=== PATIENT | female | born 1965 | race Caucasian/White ===

== ENCOUNTER 2020-10-14 12:01 | Inpatient (IN) ==
[2020-10-14 12:50] LABS: Basophils # (auto) 0.02 K/uL (0-0.2); Basophils % (auto) 0.5 %; Eosinophils # (auto) 0.06 K/uL (0-0.5); Eosinophils % (auto) 1.4 %; Hematocrit (blood only) 37.4 % (37-47); Hemoglobin 13.2 g/dL (12.0-16.0); Lymphocytes # (auto) 1.66 K/uL (1.2-3.4); Lymphocytes % (auto) 38.1 %; Mean Corpuscular Hemoglobin 32.6 pg (25-34); Mean Corpuscular Hgb Conc 35.3 g/dL (32-36); Mean Corpuscular Volume 92.3 fL (80-100); Mean Platelet Volume 8.6 fL (7.4-10.4); Monocytes # (auto) 0.25 K/uL (0.11-0.59); Monocytes % (auto) 5.7 %; Neutrophils # (auto) 2.37 K/uL (1.4-6.5); Neutrophils % (auto) 54.3 %; Platelet Count 292 K/uL (130-400); RDW Coefficient of Variation 12.7 % (11.5-14.5); RDW Standard Deviation 42.9 fL (36.4-46.3); Red Blood Count 4.05 M/uL (4.2-5.4); White Blood Count 4.36 K/uL (4.8-10.8)
[2020-10-14 13:09] LABS: Albumin Level 4.3 gm/dl (3.4-5.0); BUN Creatinine Ratio 10.1 (10-20); Calcium 9.1 mg/dl (8.5-10.1); Creatinine Clr Calc Pharmacy 74.4 ml/min; Est GFR (Non-African American) 83.7; Potassium 3.7 mmol/L (3.5-5.1)
[2020-10-14 13:11] LABS: Appearance Urine Clear (Clear); Bilirubin Urine Negative (Negative); Blood Urine Negative (Negative); Color Urine Yellow; Glucose Urine UA Negative (Negative); Ketones Urine Negative (Negative); Leukocyte Esterase Urine Negative (Negative); Nitrite Urine Negative (Negative); Protein Urine Negative (Negative); Urobilinogen Urine Negative (Negative); pH Urine 6.5 (4.5-7.5)
[2020-10-14 13:12] LABS: Albumin Globulin Ratio 1.2 (0.9-2); Bilirubin,Total 0.5 mg/dl (0.2-1); Globulin 3.6 gm/dl (2.5-4.0); Total Protein 7.9 gm/dl (6.4-8.2)
[2020-10-14] MEDS ORDERED: ONDANSETRON 4 MG OD TAB PO STA (13:33)
--- NOTE | 2020-10-14 17:35 | Emergency Department Note ---
Impression & Plan Constipation ED Provider Note INFORMANT: Patient ED PROVIDER(S): Jaspreet Murrieta MD CHIEF COMPLAINT: Constipation PLAN: Disposition: Admitted Condition: Good Outpatient prescription management: none Referral: None MEDICAL DECISION MAKING: Patient presented back to emergency department after failing her outpatient bowel regimen. She did not have any peritoneal findings on examination. His CBC and chemistry panel were unremarkable. TSH testing did not reveal any thyroid abnormalities. She underwent to soapsuds enemas without success. At that point she did not feel that she could tolerate additional enemas. I consulted with Dr. Sage of GI. He and I discussed inpatient treatment of her constipation with other laxatives, bowel prep, and enema. He had multiple considerations and I discussed having him talk with the hospitalist directly. I did consult with Dr. Rodriguez of the [facility] hospitalist service. She will contact him and they will outline her inpatient regimen. Triage Nursing notes reviewed and agree them. Vital Signs: reviewed and remarkable for no significant abnormalities Differential diagnosis: Functional constipation, impaction, obstruction, volvulus, metabolic abnormality, infection, neurologic, as well as other pathologies. Diagnostics interpreted by me: ECG: none Cardiac Monitoring: none Imaging studies: Pending. HPI: The patient is a 55 year old female who presents to the Emergency Room with complaints of continued severe constipation. This started over a week ago and is not any better despite home treatment. The patient also notes the following associated symptoms, mild nausea. The patient initially tried MiraLAX, magnesium citrate and 2 fleets enemas. She presented to the ER yesterday concerned that she may be obstructed. CT scan did not show obstruction but severe constipation. She was recommended and prescribed GoLYTELY however there was a shortage and this was unavailable. She took 11 doses of MiraLAX, 1 tables cristin in 8 ounces of Gatorade and did additional magnesium citrate and did not have any results. She felt more nauseated. She had no abdominal pain complaints. The patient contacted the emergency department for direction was told to come back in for reevaluation. Pt denies LOC, headache, fevers, chills, diaphoresis, visual changes, neck pain, chest pain, breathing difficulties, vomiting, abdominal pain, back pain, melena, hematochezia, urinary symptoms, numbness, weakness, lymphadenopathy, rash, or other complaints. ROS: See above HPI for pertinent positives & negatives. A total of 10 systems reviewed and were otherwise negative. PAST MEDICAL HISTORY:See Below , small bowel obstruction PAST SURGICAL HISTORY:See Below, lysis of adhesions FAMILY HISTORY:See Below SOCIAL HISTORY:See Below, non-smoker HOME MEDICATIONS:See Below ALLERGIES:See Below VITALS:See Below PHYSICAL EXAMINATION: GENERAL: Awake, alert, uncomfortable-appearing, in no distress HENT: Normocephalic, atraumatic. Oropharynx unremarkable. EYES: Normal conjunctiva. Sclera non-icteric. NECK: Inspection normal. Non-tender. Supple. No nuchal rigidity. FROM. No masses. RESPIRATORY: Clear to auscultation. No wheezes. No rales. Normal respiratory effort. CARDIAC: Normal rate. Normal rhythm. No murmurs. No rubs. Extremities warm and well perfused. Pulses equal. No JVD. GI: Soft, mildly-distended. Mildly tympanic. No change from yesterday. No tenderness to palpation. No rebound or guarding. No masses. RECTAL: Deferred. MUSCULOSKELETAL: Atraumatic. Chest examination reveals no tenderness. The back is symmetrical on inspection without obvious abnormality. There is no CVA tenderness to palpation. No joint edema. LOWER EXTREMITIES: Calves are equal size bilaterally and non-tender. No edema. No discoloration. NEURO: Normal sensorium. No sensory or motor deficits noted. SKIN: No rash or jaundice noted. Jaspreet Murrieta MD Past Med/Surg History Medical History (Updated 10/14/20 @ 17:31 by Jaspreet Murrieta MD) Alcohol abuse, in remission (~2015) History of COVID-19 (~2019) Surgical History (Updated 10/13/20 @ 13:08 by Raissa Anguiano) Aneurysm of right renal artery (~2003) Surgical Hx with Coil? H/O cervical spine surgery H/O hysterectomy with oophorectomy (~2001) History of breast implant Hx SBO (~2002) Family History (System 10/13/20 @ 13:08 by Raissa Anguiano) Grandmother (Paternal) Breast cancer Grandfather (Maternal) Colorectal cancer Mother Lung cancer Bladder cancer Grandfather (Paternal) Myocardial infarction Grandmother (Paternal) Alzheimer disease Denies family history of Ovarian cancer Prostate cancer Social History (System 10/13/20 @ 13:08 by Raissa Anguiano) Smoking Status: Never smoker Second Hand Exposure: No; Hx Alcohol Use: No Hx Substance Use: No Preferred Language: Turkmen Communication Ability: Effective Visual Impairment: Limited Hearing Ability: Normal marital status: Single Current Living Situation: Significant Other current occupational status: employed current occupation: Working for [employer] in [place], How many Children do You have: 3 How many Children do You have Comment: 30daughter, 26 son, 24 daughter Feels Safe at Home: Yes Childhood Exposure to Second-Hand Smoke: Yes (both parents did smoke ) caffeine: Yes (coffee ) Dental Care, Regularly: Yes Physical Activity Frequency: Does not Exercise Seatbelt Use: always Sunscreen Use: Yes Allergies Allergies Allergy/AdvReac Type Severity Reaction Status Date / Time aspirin Allergy Mild Unknown Unverified 10/14/20 15:28 ibuprofen Allergy Mild Unknown Unverified 10/14/20 15:28 Home Meds Home Medications Medication Instructions Recorded Confirmed calcium carbonate-vitamin D3 1 tab PO DAILY #0 03/15/08 10/14/20 [Caltrate 600 plus D] polyethylene glycol 3350 [Miralax] 17 g PO DAILY #0 03/15/08 10/14/20 gabapentin 600 mg tablet 600 mg PO TID 06/25/20 10/14/20 [id number]-ynexjfdfq-gzncpx-zinc 1 tab PO DAILY 10/14/20 10/14/20 Previous Rx's Medication Instructions Recorded lamotrigine 200 mg tablet 200 mg PO BID #90 tab 09/07/20 linaclotide 145 mcg capsule 145 mcg PO DAILY #30 cap 09/07/20 omega-3 fatty acids 1,000 mg 2,000 mg PO DAILY #30 cap 09/07/20 capsule ondansetron HCl 4 mg tablet 4 mg PO Q8H PRN #10 tab 09/07/20 pantoprazole 40 mg tablet,delayed 40 mg PO BID #90 tab 09/07/20 release turmeric 400 mg capsule 400 mg PO DAILY #30 cap 09/07/20 venlafaxine 150 mg 300 mg PO QAM #90 cap 09/07/20 capsule,extended release 24 hr cholecalciferol (vitamin D3) 50 50 mcg PO DAILY #30 cap 09/11/20 mcg (2,000 unit) capsule multivitamin 1 tab PO DAILY #30 tab 09/11/20 ondansetron 4 mg PO Q4H PRN #8 tab 10/13/20 sodium,potassium,mag sulfates 17.5 See Rx Instructions PO .COMPLEX 10/14/20 gram-3.13 gram-1.6 gram oral soln #354 ml Results & Data (ED) Vital Signs Vital Signs - 24 hr 10/14/20 12:22 10/14/20 14:01 10/14/20 16:00 Temperature 36.8 C Temperature Source Temporal Artery Scan Pulse Rate 75 Pulse Rate [Finger] 69 75 Pulse Rhythm [Finger] Regular Pulse Strength [Finger] Normal Respiratory Rate 16 17 17 Respiratory Effort / Characteristics Non-Labored Non-Labored Respiratory Depth Normal Normal Respiratory Pattern Regular Blood Pressure 115/63 Blood Pressure [Left Arm] 121/64 117/71 Blood Pressure Mean 80 Blood Pressure Mean [Left Arm] 83 86 Blood Pressure Position Sitting Blood Pressure Position [Left Arm] Lying Pulse Oximetry 98 99 98 Oxygen Delivery Method Room Air Room Air Room Air Sepsis Recent Fever Within 48 Hours No Sepsis New/Unexplained Change in Mental Status No Sepsis Action Taken by Nursing No Action Required 10/14/20 17:58 Temperature Temperature Source Pulse Rate Pulse Rate [Finger] 77 Pulse Rhythm [Finger] Regular Pulse Strength [Finger] Normal Respiratory Rate 17 Respiratory Effort / Characteristics Non-Labored Respiratory Depth Normal Respiratory Pattern Regular Blood Pressure Blood Pressure [Left Arm] 119/64 Blood Pressure Mean Blood Pressure Mean [Left Arm] 82 Blood Pressure Position Blood Pressure Position [Left Arm] Lying Pulse Oximetry 98 Oxygen Delivery Method Room Air Sepsis Recent Fever Within 48 Hours Sepsis New/Unexplained Change in Mental Status Sepsis Action Taken by Nursing Laboratory Data Result diagrams: 10/14/20 12:30 10/14/20 12:30 Lab Results 10/14/20 10/14/20 10/14/20 Range/Units 12:20 12:30 12:30 WBC 4.36 L (4.8-10.8) K/uL RBC 4.05 L (4.2-5.4) M/uL Hgb 13.2 (12.0-16.0) g/dL Hct 37.4 (37-47) % MCV 92.3 (80-100) fL MCH 32.6 (25-34) pg MCHC 35.3 (32-36) g/dL RDW Std Deviation 42.9 (36.4-46.3) fL RDW Coeff of Nasir 12.7 (11.5-14.5) % Plt Count 292 (130-400) K/uL MPV 8.6 (7.4-10.4) fL Immature Gran % (Auto) 0.0 % Neut % (Auto) 54.3 % Lymph % (Auto) 38.1 % Reeves % (Auto) 5.7 % Eos % (Auto) 1.4 % Baso % (Auto) 0.5 % Neut # (Auto) 2.37 (1.4-6.5) K/uL Lymph # (Auto) 1.66 (1.2-3.4) K/uL Reeves # (Auto) 0.25 (0.11-0.59) K/uL Eos # (Auto) 0.06 (0-0.5) K/uL Baso # (Auto) 0.02 (0-0.2) K/uL Immature Gran # (Auto) 0.00 (0.00-0.02) K/uL Sodium 136 (136-145) mmol/L Potassium 3.7 (3.5-5.1) mmol/L Chloride 104 (98-107) mmol/L Carbon Dioxide 30 (21-32) mmol/L Anion Gap 2.0 L (3-11) BUN 8 (7-18) mg/dl Creatinine 0.79 (0.6-1.2) mg/dl Est Cr Clr Drug Dosing 74.4 ml/min Est GFR ( Amer) 97.0 Est GFR (Non-Af Amer) 83.7 BUN/Creatinine Ratio 10.1 (10-20) Glucose 111 H (70-99) mg/dl Calcium 9.1 (8.5-10.1) mg/dl Total Bilirubin 0.5 (0.2-1) mg/dl AST 29 (15-37) U/L ALT 27 (12-78) U/L Alkaline Phosphatase 90 (45-117) U/L Total Protein 7.9 (6.4-8.2) gm/dl Albumin 4.3 (3.4-5.0) gm/dl Globulin 3.6 (2.5-4.0) gm/dl Albumin/Globulin Ratio 1.2 (0.9-2) Lipase 143 (73-393) U/L TSH (0.300-4.500) uIu/ml Urine Color Yellow Urine Appearance Clear (Clear) Urine pH 6.5 (4.5-7.5) Ur Specific [place] 1.010 (1.000-1.030) Urine Protein Negative (Negative) Urine Glucose (UA) Negative (Negative) Urine Ketones Negative (Negative) Urine Blood Negative (Negative) Urine Nitrite Negative (Negative) Urine Bilirubin Negative (Negative) Urine Urobilinogen Negative (Negative) Ur Leukocyte Esterase Negative (Negative) 10/14/20 Range/Units 12:30 WBC (4.8-10.8) K/uL RBC (4.2-5.4) M/uL Hgb (12.0-16.0) g/dL Hct (37-47) % MCV (80-100) fL MCH (25-34) pg MCHC (32-36) g/dL RDW Std Deviation (36.4-46.3) fL RDW Coeff of Nasir (11.5-14.5) % Plt Count (130-400) K/uL MPV (7.4-10.4) fL Immature Gran % (Auto) % Neut % (Auto) % Lymph % (Auto) % Reeves % (Auto) % Eos % (Auto) % Baso % (Auto) % Neut # (Auto) (1.4-6.5) K/uL Lymph # (Auto) (1.2-3.4) K/uL Reeves # (Auto) (0.11-0.59) K/uL Eos # (Auto) (0-0.5) K/uL Baso # (Auto) (0-0.2) K/uL Immature Gran # (Auto) (0.00-0.02) K/uL Sodium (136-145) mmol/L Potassium (3.5-5.1) mmol/L Chloride (98-107) mmol/L Carbon Dioxide (21-32) mmol/L Anion Gap (3-11) BUN (7-18) mg/dl Creatinine (0.6-1.2) mg/dl Est Cr Clr Drug Dosing ml/min Est GFR ( Amer) Est GFR (Non-Af Amer) BUN/Creatinine Ratio (10-20) Glucose (70-99) mg/dl Calcium (8.5-10.1) mg/dl Total Bilirubin (0.2-1) mg/dl AST (15-37) U/L ALT (12-78) U/L Alkaline Phosphatase (45-117) U/L Total Protein (6.4-8.2) gm/dl Albumin (3.4-5.0) gm/dl Globulin (2.5-4.0) gm/dl Albumin/Globulin Ratio (0.9-2) Lipase (73-393) U/L TSH 0.936 (0.300-4.500) uIu/ml Urine Color Urine Appearance (Clear) Urine pH (4.5-7.5) Ur Specific [place] (1.000-1.030) Urine Protein (Negative) Urine Glucose (UA) (Negative) Urine Ketones (Negative) Urine Blood (Negative) Urine Nitrite (Negative) Urine Bilirubin (Negative) Urine Urobilinogen (Negative) Ur Leukocyte Esterase (Negative) Administered Medications Discontinued Medications Ondansetron HCl (Ondansetron 4 Mg Od Tab) 4 mg PO NOW STA Stop: 10/14/20 13:34 Last Admin: 10/14/20 13:56 Dose: 4 mg Documented by: [id number] Discharge Plan Visit Data Chief Complaint: Constipation Stated Complaint: BLOATING/CONSTIPATED ED Provider: Jaspreet Murrieta Discharge Problem: Constipation Forms Stand Alone Forms: My [facility] Prescriptions Prescriptions: No Action polyethylene glycol 3350 [Miralax] 17 gram/dose Powder 17 g PO DAILY Qty: 0 RF: 0 Caltrate 600 plus D 600 mg (1,500 mg)-800 unit Tablet,Chewable 1 tab PO DAILY Qty: 0 RF: 0 gabapentin 600 mg tablet 600 mg PO TID RF: 0 Suprep Bowel Prep Kit 17.5-3.13-1.6 gram recon soln See Rx Instructions PO .COMPLEX Qty: 354 RF: 0 Linzess 145 mcg capsule 145 mcg PO DAILY Qty: 30 RF: 2 ondansetron HCl [Zofran] 4 mg tablet 4 mg PO Q8H PRN (Reason: nausea and vomiting) Qty: 10 RF: 0 omega-3 fatty acids [Fish Oil Concentrate] 1,000 mg capsule 2,000 mg PO DAILY Qty: 30 RF: 0 turmeric 400 mg capsule 400 mg PO DAILY Qty: 30 RF: 0 lamotrigine [Lamictal] 200 mg tablet 200 mg PO BID Qty: 90 RF: 1 pantoprazole [Protonix] 40 mg tablet,delayed release (DR/EC) 40 mg PO BID Qty: 90 RF: 3 venlafaxine [Effexor XR] 150 mg capsule,extended release 24hr 300 mg PO QAM Qty: 90 RF: 3 cholecalciferol (vitamin D3) 50 mcg (2,000 unit) capsule 50 mcg PO DAILY Qty: 30 RF: 0 multivitamin Tablet 1 tab PO DAILY Qty: 30 RF: 0 ondansetron 4 mg tablet,disintegrating 4 mg PO Q4H PRN (Reason: nausea and vomiting) Qty: 8 RF: 0 daostas-tabomxywl-[id number]-zinc Tablet 1 tab PO DAILY RF: 0
--- NOTE | 2020-10-14 18:48 | XRay Report ---
KUB HISTORY: Acute generalized abdominal pain with constipation constipation COMPARISON: CT abdomen and pelvis 10/13/2020 FINDINGS: Vascular coils medial to the right kidney redemonstrated. Nonobstructive bowel gas pattern. There is gaseous distention of the large bowel with mild to moderate fecal retention, most pronounce d in the descending colon, improved from yesterday's study. Postoperative changes of the right hemico valery. The known punctate left renal calculus is not identified. No pneumoperitoneum or pneumatosis. N o fracture. IMPRESSION: 1. Mild to moderate fecal retention has improved from yesterday's exam. 2. Mild gaseous distention of the large bowel with nonobstructive bowel gas pattern. 3. No pneumoperitoneum. ACT 112: Negative or not required by law. The above report was generated using voice recognition software. It may contain grammatical, syntax o r spelling errors. Electronically signed by: Orlando Chaudhary M.D. 10/14/2020 6:47 PM
[2020-10-14] MEDS ORDERED: PROMETHAZINE 12.5 MG/50.5 ML BAG IV STA (19:59)
[2020-10-14 20:00] LABS: Influenza A virus by PCR Negative (Neg); Influenza B virus by PCR Negative (Neg); RSV by PCR Negative (Neg); SARS CoV2 RNA(COVID-19) InHosp NEGATIVE (Negative)
--- NOTE | 2020-10-14 20:56 | History & Physical Report ---
Date of Service October 14, 2020 Assessment & Plan (1) Constipation: 55 yo F PMHx bipolar 1 disorder, GERD, IBS-C, SBO admitted for severe constipation with no BM for 12 days. Constipation, IBS-C, Hx SBO: History of constipation and SBO, was previously on Linzess but due to an insurance mixup has not been on this for about 6 weeks. With complaints of no BM for 12 days, despite Senna, Colace, Miralax, Mag citrate, enemas. KUB shows mild to moderate fecal retention and mild gaseous distention of the large bowel with nonobstructive bowel gas pattern. Will give patient constipation regimen to include Dulcolax, Colace, Shahla-Colace, Mag citrate (all scheduled), with fleets enemas as needed. Zofran PRN nausea. NPO except home meds. Will resume Linzess here while admitted; patient will require prescription on discharge. GERD: Continue pantoprazole. Bipolar 1 disorder: Continue lamotrigine, venlafaxine. Code Status: FULL CODE FEN: NPO with NSS at 100cc/hr DVT ppx: ad sadaf on demand Dispo: Med/Surg for constipation treatment (2) Bipolar 1 disorder: (3) GERD (gastroesophageal reflux disease): (4) IBS (irritable bowel syndrome): History of Present Illness Chief Complaint: constipation Primary Care Provider: Constantino St, 55 yo F PMHx bipolar 1 disorder, GERD, IBS-C, SBO presented to ER for constipation. Patient endorses no BM for 12 days; she has a history of IBS-C on Linzess but due to an insurance mixup this medication was not refilled and she has not taken it for 6 weeks. She has tried home Senna+, mag citrate, and fleet enemas without relief. She also endorses nausea and mild vague abdominal pain. She presented yesterday to ER for the same, and was first prescribed GoLytely but due to a national shortage instead did 11 doses of Miralax in Gatorade, still without relief. Denies chest pain, SOB, vomiting, dizziness, headache. No recent changes to daily routine or diet. She does not take any opiate medications. ER course included nausea medications and KUB which showed mild to moderate fecal retention and mild gaseous distention of the large bowel with nonobstructive bowel gas pattern. Hospitalist service was consulted for admission given continued constipation despite fairly aggressive outpatient treatment. Allergies Allergy/AdvReac Type Severity Reaction Status Date / Time aspirin Allergy Mild Unknown Unverified 10/14/20 15:28 ibuprofen Allergy Mild Unknown Unverified 10/14/20 15:28 Home Medications Medication Instructions Recorded Confirmed Type calcium carbonate-vitamin D3 1 tab PO DAILY #0 03/15/08 10/14/20 History [Caltrate 600 plus D] polyethylene glycol 3350 [Miralax] 17 g PO DAILY #0 03/15/08 10/14/20 History gabapentin 600 mg tablet 600 mg PO TID 06/25/20 10/14/20 History lamotrigine 200 mg tablet 200 mg PO BID #90 tab 09/07/20 10/14/20 Rx linaclotide 145 mcg capsule 145 mcg PO DAILY #30 cap 09/07/20 10/14/20 Rx omega-3 fatty acids 1,000 mg 2,000 mg PO DAILY #30 cap 09/07/20 10/14/20 Rx capsule ondansetron HCl 4 mg tablet 4 mg PO Q8H PRN #10 tab 09/07/20 10/14/20 Rx pantoprazole 40 mg tablet,delayed 40 mg PO BID #90 tab 09/07/20 10/14/20 Rx release turmeric 400 mg capsule 400 mg PO DAILY #30 cap 09/07/20 10/14/20 Rx venlafaxine 150 mg 300 mg PO QAM #90 cap 09/07/20 10/14/20 Rx capsule,extended release 24 hr cholecalciferol (vitamin D3) 50 50 mcg PO DAILY #30 cap 09/11/20 10/14/20 Rx mcg (2,000 unit) capsule multivitamin 1 tab PO DAILY #30 tab 09/11/20 10/14/20 Rx ondansetron 4 mg PO Q4H PRN #8 tab 10/13/20 10/14/20 Rx kxcnsgn-nqcyrkvpx-kvpqel-zinc 1 tab PO DAILY 10/14/20 10/14/20 History sodium,potassium,mag sulfates 17.5 See Rx Instructions PO .COMPLEX 10/14/20 10/14/20 Rx gram-3.13 gram-1.6 gram oral soln #354 ml Past Med/Surg History Medical History Alcohol abuse, in remission (~2015) History of COVID-19 (~2019) Surgical History Aneurysm of right renal artery (~2003) Surgical Hx with Coil? H/O cervical spine surgery H/O hysterectomy with oophorectomy (~2001) History of breast implant Hx SBO (~2002) Family History Grandmother (Paternal) Breast cancer Grandfather (Maternal) Colorectal cancer Mother Lung cancer Bladder cancer Grandfather (Paternal) Myocardial infarction Grandmother (Paternal) Alzheimer disease Denies family history of Ovarian cancer Prostate cancer Social History Smoking Status: Never smoker Second Hand Exposure: No; Hx Alcohol Use: No Hx Substance Use: No Preferred Language: Croatian Communication Ability: Effective Visual Impairment: Limited Hearing Ability: Normal Beliefs That Will Affect Care: None marital status: Single Current Living Situation: Alone Current Living Situation Comment: lives in house current occupational status: employed current occupation: Working for [employer] in [place], How many Children do You have: 3 How many Children do You have Comment: 30daughter, 26 son, 24 daughter Feels Safe at Home: Yes Safety Concerns: Feels Safe At This Time Childhood Exposure to Second-Hand Smoke: Yes (both parents did smoke ) caffeine: Yes (coffee ) Dental Care, Regularly: Yes Physical Activity Frequency: Does not Exercise Seatbelt Use: always Sunscreen Use: Yes Assistive Devices: Glasses Review of Systems Review of Systems: All systems reviewed & are unremarkable except as noted in HPI & below Constitutional: no fever, no chills and no malaise Respiratory: no cough and no dyspnea Cardiovascular: no chest pain, no palpitations and no edema Gastrointestinal: + abdominal pain and + constipation; no diarrhea/loose stools Genitourinary: no dysuria and no hematuria Physical Exam Constitutional: WD/WN, vitals as above Eyes: PERRL, conjunctivae normal, anicteric sclerae ENMT: external ear and nose normal, oropharynx normal Neck: normal visual inspection Respiratory: normal respiratory effort, lungs clear to auscultation Cardiovascular: RRR, no murmur, no edema Gastrointestinal (Abdomen): Inspection/Auscultation: normal bowel sounds Percussion/Palpation: + abdomen tender (LUQ, mild) and abdomen soft; no guarding Musculoskeletal: no cyanosis or clubbing, extremities motor strength 5/5 Skin: no rashes, warm and dry Neurologic: AAOx3, normal speech. Bilateral UE, LE, and face without sensory or motor deficits. No tremor. Psychiatric: A+Ox3, euthymic affect Results & Data Results & Data ([facility]) Vital Signs (Past 12 Hours) Vital Signs Temp Pulse Pulse Resp BP BP Pulse Ox 10/14/20 17:58 77 17 119/64 98 10/14/20 16:00 75 17 117/71 98 10/14/20 14:01 69 17 121/64 99 10/14/20 12:22 36.8 C 75 16 115/63 98 Laboratory Results Lab Results 10/14/20 10/14/20 10/14/20 Range/Units 12:20 12:30 12:30 WBC 4.36 L (4.8-10.8) K/uL RBC 4.05 L (4.2-5.4) M/uL Hgb 13.2 (12.0-16.0) g/dL Hct 37.4 (37-47) % MCV 92.3 (80-100) fL MCH 32.6 (25-34) pg MCHC 35.3 (32-36) g/dL RDW Std Deviation 42.9 (36.4-46.3) fL RDW Coeff of Nasir 12.7 (11.5-14.5) % Plt Count 292 (130-400) K/uL MPV 8.6 (7.4-10.4) fL Immature Gran % (Auto) 0.0 % Neut % (Auto) 54.3 % Lymph % (Auto) 38.1 % [place] % (Auto) 5.7 % Eos % (Auto) 1.4 % Baso % (Auto) 0.5 % Neut # (Auto) 2.37 (1.4-6.5) K/uL Lymph # (Auto) 1.66 (1.2-3.4) K/uL [place] # (Auto) 0.25 (0.11-0.59) K/uL Eos # (Auto) 0.06 (0-0.5) K/uL Baso # (Auto) 0.02 (0-0.2) K/uL Immature Gran # (Auto) 0.00 (0.00-0.02) K/uL Sodium 136 (136-145) mmol/L Potassium 3.7 (3.5-5.1) mmol/L Chloride 104 (98-107) mmol/L Carbon Dioxide 30 (21-32) mmol/L Anion Gap 2.0 L (3-11) BUN 8 (7-18) mg/dl Creatinine 0.79 (0.6-1.2) mg/dl Est Cr Clr Drug Dosing 74.4 ml/min Est GFR ( Amer) 97.0 Est GFR (Non-Af Amer) 83.7 BUN/Creatinine Ratio 10.1 (10-20) Glucose 111 H (70-99) mg/dl Calcium 9.1 (8.5-10.1) mg/dl Total Bilirubin 0.5 (0.2-1) mg/dl AST 29 (15-37) U/L ALT 27 (12-78) U/L Alkaline Phosphatase 90 (45-117) U/L Total Protein 7.9 (6.4-8.2) gm/dl Albumin 4.3 (3.4-5.0) gm/dl Globulin 3.6 (2.5-4.0) gm/dl Albumin/Globulin Ratio 1.2 (0.9-2) Lipase 143 (73-393) U/L TSH (0.300-4.500) uIu/ml Urine Color Yellow Urine Appearance Clear (Clear) Urine pH 6.5 (4.5-7.5) Ur Specific [place] 1.010 (1.000-1.030) Urine Protein Negative (Negative) Urine Glucose (UA) Negative (Negative) Urine Ketones Negative (Negative) Urine Blood Negative (Negative) Urine Nitrite Negative (Negative) Urine Bilirubin Negative (Negative) Urine Urobilinogen Negative (Negative) Ur Leukocyte Esterase Negative (Negative) COVID-19 Eval Order SARS-CoV-2 (PCR) (Negative) Influenza Type A (PCR) (Neg) Influenza Type B (PCR) (Neg) RSV (RT-PCR) (Neg) 05/05/21 05/05/21 05/05/21 Range/Units 12:30 Unknown Unknown WBC (4.8-10.8) K/uL RBC (4.2-5.4) M/uL Hgb (12.0-16.0) g/dL Hct (37-47) % MCV (80-100) fL MCH (25-34) pg MCHC (32-36) g/dL RDW Std Deviation (36.4-46.3) fL RDW Coeff of Nasir (11.5-14.5) % Plt Count (130-400) K/uL MPV (7.4-10.4) fL Immature Gran % (Auto) % Neut % (Auto) % Lymph % (Auto) % [place] % (Auto) % Eos % (Auto) % Baso % (Auto) % Neut # (Auto) (1.4-6.5) K/uL Lymph # (Auto) (1.2-3.4) K/uL [place] # (Auto) (0.11-0.59) K/uL Eos # (Auto) (0-0.5) K/uL Baso # (Auto) (0-0.2) K/uL Immature Gran # (Auto) (0.00-0.02) K/uL Sodium (136-145) mmol/L Potassium (3.5-5.1) mmol/L Chloride (98-107) mmol/L Carbon Dioxide (21-32) mmol/L Anion Gap (3-11) BUN (7-18) mg/dl Creatinine (0.6-1.2) mg/dl Est Cr Clr Drug Dosing ml/min Est GFR ( Amer) Est GFR (Non-Af Amer) BUN/Creatinine Ratio (10-20) Glucose (70-99) mg/dl Calcium (8.5-10.1) mg/dl Total Bilirubin (0.2-1) mg/dl AST (15-37) U/L ALT (12-78) U/L Alkaline Phosphatase (45-117) U/L Total Protein (6.4-8.2) gm/dl Albumin (3.4-5.0) gm/dl Globulin (2.5-4.0) gm/dl Albumin/Globulin Ratio (0.9-2) Lipase (73-393) U/L TSH 0.936 (0.300-4.500) uIu/ml Urine Color Urine Appearance (Clear) Urine pH (4.5-7.5) Ur Specific [place] (1.000-1.030) Urine Protein (Negative) Urine Glucose (UA) (Negative) Urine Ketones (Negative) Urine Blood (Negative) Urine Nitrite (Negative) Urine Bilirubin (Negative) Urine Urobilinogen (Negative) Ur Leukocyte Esterase (Negative) COVID-19 Eval Order [facility]FluRsv at [facility] SARS-CoV-2 (PCR) NEGATIVE (Negative) Influenza Type A (PCR) Negative (Neg) Influenza Type B (PCR) Negative (Neg) RSV (RT-PCR) Negative (Neg) Supervising Physician Co-Signing Physician Notes Patient seen and examined, chart reviewed, case discussed with Dr. Broussard and I agree with her assessment and plan as documented above. Briefly, patient is a 55yo C female with IBS-C, was previously on Linzess which was recently discontinued due to insurance confusion. Patient states that her insurance information was not updated therefore the medication was not covered. She called her insurance company to fix this issue and states that the Linzess will be covered now without difficulty. Patient had been takingSenna, Colace, Miralax, Mag citrate and enemas at home with no relief On exam she is afebrile, HD stable, NAD SKin - no rash HEENT - NC/AT, PERRL, EOMI, MMM Heart - +S1/S2, regular, no m/r/g Lungs - CTA Abd - +BS, soft, mildly distended, mildly tender with no rebound/guarding Ext - No edema Neuro - grossly nonfocal Labs and images reviewed KUB with mild to moderate fecal retention and mild gaseous distention fo the large bowel with nonobstructive pattern Assessment/Plan -Aggressive bowel regimen - Dulcolax, Colace, Shahla-colace, Mag citrate, enemas as needed -Resume Linzess -Monitor output, volume status and electrolytes -Remainder of plan as above Resident Activity Tracking Resident Involvement: Resident Care Provided Care Provided: Adult Hospital Medicine (1) GERD (gastroesophageal reflux disease) Esophagitis presence: without esophagitis Qualified Code(s): K21.9 - Gastro- esophageal reflux disease without esophagitis (2) Constipation Constipation type: unspecified constipation type Qualified Code(s): K59.00 - Constipation, unspecified (3) IBS (irritable bowel syndrome) Irritable bowel syndrome type: with constipation Qualified Code(s): K58.1 - Irritable bowel syndrome with constipation
[2020-10-14] MEDS ORDERED: ONDANSETRON INJ 2 MG/ML 2 ML VIAL IV PRN (23:24)
[2020-10-14] MEDS ORDERED: MELATONIN 3 MG TAB PO PRN (23:24)
[2020-10-14] MEDS ORDERED: SOD PHOSPHATE/SOD BIPHOSPHATE ENEMA 132 ML BTL PR PRN (23:24)
[2020-10-15] MEDS: SODIUM CHLORIDE 0.9% 1000ML 1,000 ML IV SCH ×2 (00:01→10:37)
[2020-10-15] MEDS: GABAPENTIN 600 MG TAB PO SCH ×4 (00:02→20:12)
[2020-10-15] MEDS: lamoTRIgine 100 MG TAB PO SCH ×3 (00:02→20:12)
[2020-10-15] MEDS: PANTOprazole 40 MG TAB PO SCH ×3 (00:02→20:12)
[2020-10-15] MEDS: bisacodyL 10 MG SUPP PR SCH ×2 (00:02→20:11)
[2020-10-15] MEDS: DOCUSATE SODIUM 100 MG CAP PO SCH ×3 (00:03→20:11)
--- NOTE | 2020-10-15 00:52 | Billing Data ---
Date of Service October 14, 2020 Coding Level of Care Code 53968 OBS Care - Level 2
[2020-10-15] MEDS: MULTIVITAMIN TAB PO SCH (08:18)
[2020-10-15] MEDS: DOCUSATE SODIUM/SENNA 50/8.6MG TAB PO SCH (08:19)
[2020-10-15] MEDS: VENLAFAXINE HCL XR 150 MG CAPXR PO SCH (08:20)
[2020-10-15] MEDS: LINACLOTIDE 145 MCG CAPSULE PO SCH (08:21)
[2020-10-15] MEDS: MAGNESIUM CITRATE 296 ML/BTL PO SCH (08:25)
[2020-10-15] MEDS ORDERED: METOCLOPRAMIDE HCL 5 MG TABLET PO PRN (11:45)
--- NOTE | 2020-10-15 11:49 | Hospitalist Progress Note ---
Date of Service October 15, 2020 Assessment & Plan (1) Constipation: History of constipation and SBO, was previously on Linzess but due to an insurance mixup has not been on this for about 6 weeks. - No BM for 13 days. - Continue admitting regimen. Discussed with patient option of lactulose, but we both feel better to give the current regimen 24 hours to work to avoid overtreatment and diarrhea. (2) Bipolar 1 disorder: - Continue lamotrigine, venlafaxine, & gabapentin. (3) GERD (gastroesophageal reflux disease): - Continue pantoprazole PO BID. (4) IBS (irritable bowel syndrome): - Will resume Linzess here while admitted; patient will require prescription on discharge. (5) DVT prophylaxis: SCDs - Low DVT risk per admission calculator Admission and Anticipated Discharge Date Admission Date: October 14, 2020 Subjective Still with some nausea. No BM yet. Reports no fevers/chills, chest pain, shortness of breath, abdominal pain, nausea, or vomiting. Physical Exam Constitutional: WD/WN, vitals as above Eyes: EOM intact bilaterally; no conjunctival abnormality ENMT: external ear and nose normal, oropharynx normal Neck: trachea midline, no thyromegaly normal visual inspection Respiratory: normal respiratory effort, lungs clear to auscultation no respiratory distress Cardiovascular: RRR, no murmur, no edema Gastrointestinal (Abdomen): Inspection/Auscultation: abdomen normal to inspection and + hypoactive bowel sounds; abdomen not distended Percussion/Palpation: abdomen soft; abdomen nontender, no guarding and abdomen not rigid Musculoskeletal: no cyanosis or clubbing, extremities motor strength 5/5 Skin: no rashes, warm and dry Neurologic: moves all extremities and awake Psychiatric: Orientation: alert, oriented to person and cooperative Results & Data Results & Data ([facility]) Vital Signs (Past 12 Hours) Vital Signs Temp Pulse Resp BP Pulse Ox 10/15/20 06:53 36.7 C 82 16 109/59 L 95 PG Care Time/CCT Total # of Minutes Spent Total Time Spent with Patient: Total time spent is greater than 50% in coordination of care (as documented) at patient's floor/unit and/or counseling p atient: Coding Level of Care Code 10002 Subseq Obs Care Lvl 2 Diagnoses Constipation K59.00 Constipation type: unspecified constipation type Bipolar 1 disorder F31.9 GERD (gastroesophageal reflux disease) K21.9 Esophagitis presence: without esophagitis IBS (irritable bowel syndrome) K58.1 Irritable bowel syndrome type: with constipation DVT prophylaxis Z29.9 (1) Constipation Constipation type: unspecified constipation type Qualified Code(s): K59.00 - Constipation, unspecified (2) GERD (gastroesophageal reflux disease) Esophagitis presence: without esophagitis Qualified Code(s): K21.9 - Gastro-esophageal reflux disease without esophagitis (3) IBS (irritable bowel syndrome) Irritable bowel syndrome type: with constipation Qualified Code(s): K58.1 - Irritable bowel syndrome with constipation
[2020-10-15] MEDS: ACETAMINOPHEN 325 MG TAB PO PRN (13:34)
[2020-10-16] MEDS: ACETAMINOPHEN 325 MG TAB PO PRN (04:05)
[2020-10-16 06:33] LABS: BUN Creatinine Ratio 10.8 (10-20); Calcium 8.9 mg/dl (8.5-10.1); Creatinine Clr Calc Pharmacy 70.7 ml/min; Est GFR (African American) 95.5; Est GFR (Non-African American) 82.4; Magnesium 2.2 mg/dl (1.8-2.4)
[2020-10-16 06:34] LABS: Phosphorus 3.1 mg/dl (2.5-4.9)
[2020-10-16] MEDS: DOCUSATE SODIUM/SENNA 50/8.6MG TAB PO SCH (08:02)
[2020-10-16] MEDS: GABAPENTIN 600 MG TAB PO SCH ×3 (08:02→20:50)
[2020-10-16] MEDS: DOCUSATE SODIUM 100 MG CAP PO SCH ×2 (08:02→20:50)
[2020-10-16] MEDS: VENLAFAXINE HCL XR 150 MG CAPXR PO SCH (08:03)
[2020-10-16] MEDS: lamoTRIgine 100 MG TAB PO SCH ×2 (08:03→20:50)
[2020-10-16] MEDS: LINACLOTIDE 145 MCG CAPSULE PO SCH (08:03)
[2020-10-16] MEDS: MULTIVITAMIN TAB PO SCH (08:03)
[2020-10-16] MEDS: PANTOprazole 40 MG TAB PO SCH ×2 (08:03→20:50)
[2020-10-16] MEDS: MAGNESIUM CITRATE 296 ML/BTL PO SCH (08:04)
[2020-10-16] MEDS: bisacodyL 10 MG SUPP PR SCH (20:51)
--- NOTE | 2020-10-16 22:46 | Hospitalist Progress Note ---
Date of Service October 16, 2020 Assessment & Plan (1) Constipation: History of constipation and SBO, was previously on Linzess but due to an insurance mixup has not been on this for about 6 weeks. - No BM for 13 days. - Continue admitting regimen. Discussed with patient option of lactulose, but we both feel better to give the current regimen 24 hours to work to avoid overtreatment and diarrhea. She feels better on 5/7 but not at baseline. will advance diet and monitor for 24 hours. will repeat KUB. (2) Bipolar 1 disorder: - Continue lamotrigine, venlafaxine, & gabapentin. (3) GERD (gastroesophageal reflux disease): - Continue pantoprazole PO BID. (4) IBS (irritable bowel syndrome): - Will resume Linzess here while admitted; patient will require prescript ion on discharge. (5) DVT prophylaxis: SCDs - Low DVT risk per admission calculator Admission and Anticipated Discharge Date Admission Date: October 14, 2020 Subjective Patient reports doing well. She dopes complain of more distention today. She does not feel ready for discharge Review of Systems Review of Systems: All systems reviewed & are unremarkable except as noted in HPI & below Physical Exam Physical Exam: Constitutional: WD/WN, vitals as above Eyes: EOM intact bilaterally; no conjunctival abnormality ENMT: external ear and nose normal, oropharynx normal Neck: trachea midline, no thyromegaly normal visual inspection Respiratory: normal respiratory effort, lungs clear to auscultation no respiratory distress Cardiovascular: RRR, no murmur, no edema Gastrointestinal (Abdomen): Inspection/Auscultation: abdomen normal to inspection and + hypoactive bowel sounds; abdomen not distended Percussion/Palpation: abdomen soft; abdomen nontender, no guarding and abdomen not rigid Musculoskeletal: no cyanosis or clubbing, extremities motor strength 5/5 Skin: no rashes, warm and dry Neurologic: moves all extremities and awake Psychiatric: Orientation: alert, oriented to person and cooperative Results & Data Results & Data ([facility]) Vital Signs (Past 12 Hours) Vital Signs Temp Pulse Resp BP Pulse Ox 10/16/20 14:59 36.9 C 83 20 99/60 L 97 PG Care Time/CCT Total # of Minutes Spent Total Time Spent with Patient: Total time spent is greater than 50% in coordination of care (as documented) at patient's floor/unit and/or counseling patient: Coding Level of Care Code 22456 Subseq Hosp Care Lvl 2 Diagnoses Constipation K59.00 Constipation type: unspecified constipation type Bipolar 1 disorder F31.9 GERD (gastroesophageal reflux disease) K21.9 Esophagitis presence: without esophagitis IBS (irritable bowel syndrome) K58.1 Irritable bowel syndrome type: with constipation DVT prophylaxis Z29.9 Time Spent (min) 25 (1) GERD (gastroesophageal reflux disease) Esophagitis presence: without esophagitis Qualified Code(s): K21.9 - Gastro- esophageal reflux disease without esophagitis (2) Constipation Constipation type: unspecified constipation type Qualified Code(s): K59.00 - Constipation, unspecified (3) IBS (irritable bowel syndrome) Irritable bowel syndrome type: with constipation Qualified Code(s): K58.1 - Irritable bowel syndrome with constipation
[2020-10-17] MEDS: LINACLOTIDE 145 MCG CAPSULE PO SCH (08:47)
[2020-10-17] MEDS: lamoTRIgine 100 MG TAB PO SCH (08:48)
[2020-10-17] MEDS: VENLAFAXINE HCL XR 150 MG CAPXR PO SCH (08:48)
[2020-10-17] MEDS: GABAPENTIN 600 MG TAB PO SCH ×2 (08:49→15:11)
[2020-10-17] MEDS: MULTIVITAMIN TAB PO SCH (08:50)
[2020-10-17] MEDS: MAGNESIUM CITRATE 296 ML/BTL PO SCH (08:50)
[2020-10-17] MEDS: DOCUSATE SODIUM/SENNA 50/8.6MG TAB PO SCH (08:50)
[2020-10-17] MEDS: PANTOprazole 40 MG TAB PO SCH (08:51)
[2020-10-17] MEDS: DOCUSATE SODIUM 100 MG CAP PO SCH (08:51)
--- NOTE | 2020-10-17 15:42 | XRay Report ---
KUB CLINICAL HISTORY: Bowel Obstruction COMPARISON STUDY: CT of the abdomen and pelvis October 13, 2020. KUB October 14, 2020. FINDINGS: Right abdominal endovascular coils are again noted. The bowel gas pattern is normal. There is no evidence for a bowel obstruction. Surgical staple line projects over the right lower quadrant. IMPRESSION: No evidence for a bowel obstruction. ACT 112: Negative or not required by law. Electronically signed by: Harjinder Arnold M.D. 10/17/2020 3:41 PM
--- NOTE | 2020-10-25 10:50 | Discharge Summary ---
Date of Service Oct 17 2020 Admission HPI Per Admitting Provider 55 yo F PMHx bipolar 1 disorder, GERD, IBS-C, SBO presented to ER for constipation. Patient endorses no BM for 12 days; she has a history of IBS-C on Linzess but due to an insurance mixup this medication was not refilled and she has not taken it for 6 weeks. She has tried home Senna+, mag citrate, and fleet enemas without relief. She also endorses nausea and mild vague abdominal pain. She presented yesterday to ER for the same, and was first prescribed GoLytely but due to a national shortage instead did 11 doses of Miralax in [facility], still without relief. Denies chest pain, SOB, vomiting, dizziness, headache. No recent changes to daily routine or diet. She does not take any opiate medications. ER course included nausea medications and KUB which showed mild to moderate fecal retention and mild gaseous distention of the large bowel with nonobstructive bowel gas pattern. Hospitalist service was consulted for admission given continued constipation despite fairly aggressive outpatient treatment. Principal Diagnosis Constipation Discharge Exam Constitutional: WD/WN, vitals as above Eyes: EOM intact bilaterally; no conjunctival abnormality ENMT: external ear and nose normal, oropharynx normal Neck: trachea midline, no thyromegaly normal visual inspection Respiratory: normal respiratory effort, lungs clear to auscultation no respiratory distress Cardiovascular: RRR, no murmur, no edema Gastrointestinal (Abdomen): Inspection/Auscultation: abdomen normal to inspection and + hypoactive bowel sounds; abdomen not distended Percussion/Palpation: abdomen soft; abdomen nontender, no guarding and abdomen not rigid Musculoskeletal: no cyanosis or clubbing, extremities motor strength 5/5 Skin: no rashes, warm and dry Neurologic: moves all extremities and awake Psychiatric: Orientation: alert, oriented to person and cooperative Discharge Data Allergies Allergy/AdvReac Type Severity Reaction Status Date / Time gluten Allergy Severe Celiac Verified 10/22/20 10:28 Disease aspirin Allergy Intermediate Hives Verified 10/22/20 10:28 ibuprofen Allergy Intermediate Hives Verified 10/22/20 10:28 Hospital Course (1) Constipation: History of constipation and SBO, was previously on Linzess but due to an insurance mixup has not been on this for about 6 weeks. - No BM for 13 days. - Continue admitting regimen. Discussed with patient option of lactulose, but we both feel better to give the current regimen 24 hours to work to avoid overtreatment and diarrhea. She feels better on 10/16 but not at baseline. will advance diet and monitor for 24 hours. will repeat KUB. On 10/17, KUB did not show signs of obstruction. Patient felt better. Ok for discharge. Continue Linzess (2) Bipolar 1 disorder: - Continue lamotrigine, venlafaxine, & gabapentin. (3) GERD (gastroesophageal reflux disease): - Continue pantoprazole PO BID. (4) IBS (irritable bowel syndrome): - Will resume Linzess here while admitted; patient will require prescription on discharge. (5) DVT prophylaxis: SCDs - Low DVT risk per admission calculator Total Time Total Time Spent Total Time Spent (In Minutes): 32 Total Time Includes: Examination of the Patient, Discharge Planning and Medication Reconciliation Discharge Plan Discharge Items Patient Disposition: Home - Self-Care Reason For Visit: CONSTIPATION FAILING OUTPATIENT TREATMENT Discharge Diagnosis: Constipation Activity: Resume your previous activity Non-emergency contact: Primary Care Provider Call non-emergency contact if: your symptoms worsen Follow-up/Referrals: Constantino St, [Primary Care Provider] - Diet: Regular Addtl Attending Provider Instructions: You were admitted to the hospital with constipation that was not improving with outpatient therapy. Luckily, we have improved your constipation. We are sending a prescription for your Linzess to your pharmacy with 1 refill. Please follow up with your GI doctor or PCP to be sure you can keep getting this medication. Pending Studies at Discharge: No Stand-Alone Forms: My [facility], Smoking Cessation Medications and DC Order Prescriptions: Continued polyethylene glycol 3350 [Miralax] 17 gram/dose Powder 17 g PO DAILY PRN (Reason: Constipation) Qty: 0 RF: 0 gabapentin 600 mg tablet 600 mg PO TID RF: 0 lamotrigine [Lamictal] 200 mg tablet 200 mg PO BID Qty: 90 RF: 1 pantoprazole [Protonix] 40 mg tablet,delayed release (DR/EC) 40 mg PO BID Qty: 90 RF: 3 venlafaxine [Effexor XR] 150 mg capsule,extended release 24hr 300 mg PO QAM Qty: 90 RF: 3 ondansetron 4 mg tablet,disintegrating 4 mg PO Q4H PRN (Reason: nausea and vomiting) Qty: 8 RF: 0 omineyh-ofsephwon-agbpqd-zinc Tablet 1 tab PO QAM RF: 0 Discontinued Linzess 145 mcg capsule 145 mcg PO DAILY Qty: 30 RF: 2 No Action Sutab 1.479-0.188 gram tablet 24 tab PO .COMPLEX Qty: 24 RF: 0 multivitamin Tablet 1 tab PO QAM RF: 0 omega-3 fatty acids [Fish Oil Concentrate] 1,000 mg capsule 2,000 mg PO QAM RF: 0 cholecalciferol (vitamin D3) 50 mcg (2,000 unit) capsule 50 mcg PO QAM RF: 0 Linzess 145 mcg capsule 145 mcg PO QAM RF: 0 turmeric 400 mg capsule 400 mg PO QAM RF: 0 Discharge Orders: Discharge Order (Routine); Ordered 10/17/20 Ordered By: Tyrone Christopher Admission Data Admit Date/Time: 10/16/20 22:45 Attending Provider: Tyrone Christopher Admit Provider: Joselyn Broussard Primary Care Provider: Constantino St Other Interventions: Discharge Summary Assessment (RN) Last Done: 10/17/20 17:44 Coding Level of Care Code D/C Day Management >30 mins Diagnoses Constipation K59.00 Constipation type: unspecified constipation type Bipolar 1 disorder F31.9 GERD (gastroesophageal reflux disease) K21.9 Esophagitis presence: without esophagitis IBS (irritable bowel syndrome) K58.1 Irritable bowel syndrome type: with constipation DVT prophylaxis Z29.9
== END 2020-10-17 19:50 | disposition home or self-care (01) | DRG 392 ==
LOC: ED 12:01 → 2N 12:01 → SUATTDRO 21:47 → 2N 22:25